=== PATIENT | male | born 1945 | race Caucasian/White ===

== ENCOUNTER 2021-10-13 18:56 | Emergency (ER) | payer MEDICARE, OTHER ==
[~2021-10-13] VITALS: Ht 190.5 cm; Wt 98.2 kg
[2021-10-13 18:56] VITALS: BP 132/96
[2021-10-13] MEDS ORDERED: SERT50TA29 PO (19:14)
[2021-10-13] MEDS ORDERED: IPRA3SP NARES (19:14)
[2021-10-13] MEDS ORDERED: ALFU10TA3 PO (19:14)
[2021-10-13] MEDS ORDERED: ELIQ5TAB PO (19:14)
[2021-10-13] MEDS ORDERED: FLON1SPR NARES (19:14)
[2021-10-13] MEDS ORDERED: B-12100010 PO (19:14)
[2021-10-13] MEDS ORDERED: vitamin D PO (19:14)
[2021-10-13] MEDS ORDERED: OMEP1CAP73 PO (19:14)
[2021-10-13] MEDS ORDERED: AMBI10TA PO (19:14)
[2021-10-13] MEDS ORDERED: TRAM50TA2 PO (19:14)
[2021-10-13] MEDS ORDERED: DILT240C47 PO (19:14)
[2021-10-13] MEDS ORDERED: ATOR80TA59 PO (19:14)
[2021-10-13] MEDS ORDERED: AZEL0.1S NARES (19:14)
[2021-10-13 21:03] LABS: BASO % 0.5 % (0.0-1.0); EOS # 0.3 10^3/uL (0.0-0.5); EOS % 5.6 % (0.0-3.0); HEMATOCRIT 40.1 % (42.0-52.0); HEMOGLOBIN 13.2 g/dl (13.5-17.5); LYMPH # 0.7 10^3/uL (1.5-5.0); LYMPH % 11.6 % (24.0-44.0); MEAN CORPUSCULAR HGB CONC 32.9 g/dl (32.0-36.5); MEAN CORPUSCULAR VOLUME 97.1 fl (80.0-96.0); MONO # 0.6 10^3/uL (0.0-0.8); MONO % 10.2 % (2.0-8.0); NEUTROPHILS % 70.8 % (36.0-66.0); PLATELET COUNT, AUTOMATED 181 10^3/uL (150-450); RED BLOOD COUNT 4.13 10^6/uL (4.30-6.10); WHITE BLOOD COUNT 5.6 10^3/uL (4.0-10.0)
[2021-10-13 21:21] LABS: ERYTHROCYTE SEDIMENTATION RATE 23 mm/hr (0-20)
[2021-10-13 21:44] LABS: RSV AMPLIFICATION NEGATIVE (NEGATIVE)
[2021-10-13 22:05] LABS: ALBUMIN 3.7 GM/DL (3.2-5.2); ALT/SGPT 38 U/L (12-78); BILIRUBIN,DIRECT 0.2 MG/DL (0.0-0.2); BILIRUBIN,TOTAL 0.8 MG/DL (0.2-1.0); BLOOD UREA NITROGEN 17 MG/DL (7-18); C REACTIVE PROTEIN QUANTITATIV 1.89 MG/DL (0.00-0.30); CALCIUM LEVEL 9.7 MG/DL (8.8-10.2); CARBON DIOXIDE LEVEL 26 MEQ/L (21-32); CHLORIDE LEVEL 107 MEQ/L (98-107); CREATININE FOR GFR 0.98 MG/DL (0.70-1.30); GLOMERULAR FILTRATION RATE > 60.0 (>42); GLUCOSE, FASTING 107 MG/DL (70-100); LIPASE 100 U/L (73-393); SODIUM LEVEL 138 MEQ/L (136-145); TOTAL PROTEIN 6.7 GM/DL (6.4-8.2)
[2021-10-13] MEDS ORDERED: cefTRIAXone SOD 2 GM VIAL (J0696 PER 250MG) IM ONE (22:10)
[2021-10-13] MEDS ORDERED: cefTRIAXone SOD 2 GM in D5W MINI-BAG PLUS 50 ML IV ONE (22:10)
[2021-10-13] MEDS ORDERED: LIDOCAINE 1% SDV 5ML VIAL DILUENT ONE (22:10)
[2021-10-13] MEDS ORDERED: ACETAMINOPHEN 325 MG TAB PO ONE (22:35)
== END 2021-10-13 22:48 | disposition home or self-care (01) ==
LOC: M ED 18:56
DX: S80.12XA Contusion of left lower leg, initial encounter (principal); M25.462 Effusion, left knee; M54.50 Low back pain, unspecified; Z86.79 Personal history of other diseases of the circulatory system; Z87.891 Personal history of nicotine dependence; Z79.899 Other long term (current) drug therapy; Y92.9 Unspecified place or not applicable; Y93.9 Activity, unspecified; Y99.9 Unspecified external cause status
CPT/HCPCS: 73564; 80048; 80076; 83605; 83690; 85025; 85652; 86140; 87040; 87077; 87631; 96372; 99284; J0696

== ENCOUNTER → 2021-10-14 | Outpatient (CLI) | payer OTHER ==
[~2021-10-14] MED LIST: ALFU10TA3 PO; AMBI10TA PO; ATOR80TA59 PO; AZEL0.1S NARES; B-12100010 PO; DILT240C47 PO; ELIQ5TAB PO; FLON1SPR NARES; IPRA3SP NARES; OMEP1CAP73 PO; SERT50TA29 PO; TRAM50TA2 PO; vitamin D PO
[2021-10-14 13:11] LABS: BASO % 0.3 % (0.0-1.0); EOS # 0.3 10^3/uL (0.0-0.5); EOS % 5.5 % (0.0-3.0); HEMATOCRIT 37.6 % (42.0-52.0); HEMOGLOBIN 12.3 g/dl (13.5-17.5); LYMPH # 0.6 10^3/uL (1.5-5.0); MEAN CORPUSCULAR HEMOGLOBIN 32.3 pg (27.0-33.0); MEAN CORPUSCULAR HGB CONC 32.7 g/dl (32.0-36.5); MEAN CORPUSCULAR VOLUME 98.7 fl (80.0-96.0); MONO # 0.7 10^3/uL (0.0-0.8); MONO % 10.5 % (2.0-8.0); NEUTROPHILS # 4.6 10^3/uL (1.5-8.5); NEUTROPHILS % 73.3 % (36.0-66.0); PLATELET COUNT, AUTOMATED 206 10^3/uL (150-450); RED BLOOD COUNT 3.81 10^6/uL (4.30-6.10); WHITE BLOOD COUNT 6.2 10^3/uL (4.0-10.0)
[2021-10-14 13:31] LABS: ERYTHROCYTE SEDIMENTATION RATE 26 mm/hr (0-20)
== END ==
LOC: M LAB 12:16
PROVIDERS: ATTEND Physician Assistant
DX: L03.116 Cellulitis of left lower limb (principal)

== ENCOUNTER → 2021-10-16 | Outpatient (CLI) | payer OTHER ==
[2021-10-16 10:58] LABS: BASO % 0.5 % (0.0-1.0); EOS # 0.4 10^3/uL (0.0-0.5); EOS % 5.7 % (0.0-3.0); HEMATOCRIT 38.2 % (42.0-52.0); HEMOGLOBIN 12.3 g/dl (13.5-17.5); LYMPH # 0.7 10^3/uL (1.5-5.0); LYMPH % 10.9 % (24.0-44.0); MEAN CORPUSCULAR HEMOGLOBIN 31.4 pg (27.0-33.0); MEAN CORPUSCULAR HGB CONC 32.2 g/dl (32.0-36.5); MEAN CORPUSCULAR VOLUME 97.4 fl (80.0-96.0); MONO # 0.6 10^3/uL (0.0-0.8); NEUTROPHILS # 4.6 10^3/uL (1.5-8.5); NEUTROPHILS % 72.3 % (36.0-66.0); PLATELET COUNT, AUTOMATED 222 10^3/uL (150-450); RED BLOOD COUNT 3.92 10^6/uL (4.30-6.10); WHITE BLOOD COUNT 6.3 10^3/uL (4.0-10.0)
[2021-10-16 12:12] LABS: ERYTHROCYTE SEDIMENTATION RATE 27 mm/hr (0-20)
== END ==
LOC: M LAB 10:22
PROVIDERS: ATTEND Orthopaedic Surgery Hand Surgery
DX: L03.116 Cellulitis of left lower limb (principal)